=== PATIENT | male | born 1990 | race Two or more races ===

== ENCOUNTER 2021-07-26 15:02 | Emergency (ER) | payer MEDICAID, OTHER ==
[~2021-07-26] VITALS: Ht 170.2 cm; Wt 76.7 kg
[2021-07-26] MEDS ORDERED: GENTAMICIN SULFATE 280 MG in D5W 5% 100 ML IV ONE (17:30)
[2021-07-26] MEDS ORDERED: ceFAZolin 1GM/50ML 100 ML IV ONE (17:30)
[2021-07-26] MEDS ORDERED: fentaNYL CITRATE 100 MCG/2 ML VL IV ONE ×2 (17:30→22:15)
[2021-07-26] MEDS ORDERED: TETANUS-DIPTH-ACEL PERTUSSIS 0.5ML SYR Tdap IM ONE (17:30)
[2021-07-26] MEDS ORDERED: fentaNYL CITRATE 100 MCG/2 ML VL ONE (17:33)
[2021-07-26] MEDS ORDERED: KETOROLAC TROMETH 30 MG/ML 1ML VIAL IV ONE (18:15)
[2021-07-26] MEDS ORDERED: LIDOCAINE 1% HCL (LOCAL ANESTH.) INJ 20ML MDV ID ONE (21:00)
[2021-07-26] MEDS ORDERED: CEPH-509 PO (22:41)
[2021-07-26] MEDS ORDERED: HYDR-4902 PO (22:41)
[2021-07-26 22:45] VITALS: BP 118/62
== END 2021-07-26 23:34 | disposition home or self-care (01) ==
LOC: ER 15:04
DX: S82.402A Unspecified fracture of shaft of left fibula, initial encounter for closed fracture (principal); V86.59XA Driver of other special all-terrain or other off-road motor vehicle injured in nontraffic accident, initial encounter; Y93.89 Activity, other specified; Y92.488 Other paved roadways as the place of occurrence of the external cause; Y99.8 Other external cause status
CPT/HCPCS: 73502; 73590; 73700; 90471; 90715; 96365; 96367; 96375; 96376; 99285; J0690; J1580; J1885; J2001; J3010; J7060